=== PATIENT | female | born 1985 | race Caucasian/White ===

== ENCOUNTER 2017-09-18 15:31 | Emergency (ER) | payer MEDICAID ==
[~2017-09-18] VITALS: Ht 167.6 cm; Wt 79.5 kg
[~2017-09-18 15:31] MED LIST: IBUP400T22 PO
[2017-09-18 15:35] VITALS: Ht 167.6 cm; Wt 79.5 kg
[2017-09-18] MEDS ORDERED: KETOROLAC 15 MG INJ IM STA (17:15)
--- NOTE | 2017-09-18 17:15 | ERD ---
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 Denies change in vision, nausea, vomiting, change in behavior, alteration in limb function, reports that she has intermittent tingling on the right arm.. ROS All systems reviewed and are negative except as per history of present illness. Medications Home Meds Active Scripts Ibuprofen* (Ibuprofen*) 400 Mg Tablet, 400 MG PO Q6H Y for PAIN, #30 TAB Prov:VERONICA ANDERSON NP 08/22/15 Allergies Allergies: Coded Allergies: No Known Allergy (Unverified , 09/26/14) PMhx/Soc History of Surgery: No Anesthesia Reaction: No Hx Neurological Disorder: No Hx Cardiac Disorders: No Hx Psychiatric Problems: No Hx Miscellaneous Medical Probl: No Hx Alcohol Use: No Hx Substance Use: No Hx Tobacco Use: No Physical Exam Vitals Vital Signs Date Time Temp Pulse Resp B/P Pulse Ox O2 Delivery O2 Flow Rate FiO2 09/18/17 15:35 98.0 79 20 139/82 99 Vitals stable, triage notes reviewed Physical Exam Const: Well-nourished well hydrated well appearing 32-year-old female no acute distress Head: Atraumatic Eyes: Normal Conjunctiva, PERRLA, EOMI ENT: Neck: No cervical point tenderness, palpable paraspinal tenderness on right, decreased range of motion with rotation, flexion, extension , and lateral bending. Resp: Clear to auscultation bilaterally no respiratory distress Cardio: S1-S2, no S3-S4, regular rate and rhythm, no murmur Abd: Skin: No petechiae or rashes, no ecchymosis abrasion or laceration Back: No midline or flank tenderness Ext: Neuro: M/S: Alert and oriented Face: EOMI, face and pharynx with normal sensation and function Motor: Normal strength throughout Sensation: Normal sensation throughout Speech: Normal Cerebel: Normal coordination Normal gait Normal finger to nose Psych: Normal Mood and Affect Results 24 hrs Current Medications Medications (Trade) Dose Ordered Sig/Faith Route PRN Reason Start Time Stop Time Status Last Admin Dose Admin Ketorolac Tromethamine (Toradol) 15 mg ONCE STAT IM 09/18/17 17:15 09/18/17 17:19 DC 09/18/17 17:52 Procedures/MDM This 32-year-old female presents to emergency department where evaluation of a right-sided headache, neck pain, with intermittent numbness and tingling radiating down right arm. Patient denies any known injury but she is a primary caregiver to an autistic child that can be combative at times. Patient is neurologically stable with no deficit identified, emergency room course includes history and physical exam, Toradol intramuscularly, patient reassessed after 30 minutes with improvement of headache symptoms, patient will be discharged home with Naprosyn 500 mg 1 tab p.o. twice daily 10 days, and Valium 5 mg 1 tab p.o. 3 times daily count of 10. Patient instructed to follow- up with primary care physician for routine health maintenance, in addition to possible referral to physical therapist. Return to emergency department for change in behavior, headache not responding to treatment, or symptoms not improving as inspected. Patient is stable with no new complaints during ER course, clinically there is no current evidence to suggest meningitis, sepsis, acute abdomen, acute coronary syndromes, pulmonary embolism or any other emergent condition appearing to require further evaluation or hospitalization. I feel the patient is stable for discharge at this time. I have discussed results, examination findings, the treatment plan with the patient and family present prior to discharge. Indications for emergent reevaluation, side effects of medication were also discussed. All questions were answered. Patient verbalizes understanding and agrees with plan of care. Departure Diagnosis: Primary Impression: Headache Headache type: tension-type Headache chronicity pattern: episodic headache Intractability: not intractable Qualified Code: G44.219 - Episodic tension- type headache, not intractable Additional Impression: Cervical sprain Encounter type: initial encounter Qualified Code: S13.9XXA - Neck sprain, initial encounter Condition: Good Patient Instructions: Self-Care for Headaches Referrals: [facility] Additional Instructions: Thank you for for coming to the [facility] for your care today. Please ask your nurse or provider if you have questions about your care today and do not leave until all your questions have been answered. Please use any medications given as directed and follow-up with your doctor (or the doctor you were referred to) in the next 2-3 days. If you do not have a primary care doctor you may follow up at the [facility] (listed below). You may also use motrin and tylenol as needed for fever and/or pain unless instructed otherwise by your provider or nurse. Indications for more urgent follow-up have been discussed, but you may return to the Emergency Department at ANY time for any worrisome or worsening symptoms. If you have abdominal pain, please know that no test or exam you received is perfect and you should follow up within 8 hours for continued pain. If you had any imaging studies today, such as an X-Ray or CT Scan, these studies will be reviewed later by a radiologist. You will be called if there are important findings that were not identified today, so make sure the contact information you provided at registration is correct. If you received any narcotic pain control medicine today, such as Vicodin, Morphine or Dilaudid, your coordination and judgment may be affected for a number of hours. Please do not drive or operate heavy machinery, and you may want someone to assist you at home. If you were given a prescription for narcotic medication, be aware that it is very addictive- use sparingly and only if necessary. BETTY SLAUGHTER Sep 18, 2017 17:15
[2017-09-18] MEDS ORDERED: DIAZ-90 PO (19:41)
[2017-09-18] MEDS ORDERED: NAPR-260 PO (19:41)
[2017-09-18 19:46] VITALS: BP 121/78; PULSE 71; RESP 18
== END 2017-09-18 19:47 | disposition home or self-care (01) ==
LOC: FTE 15:31
DX: G44.219 Episodic tension-type headache, not intractable (principal); S13.9XXA Sprain of joints and ligaments of unspecified parts of neck, initial encounter; X58.XXXA Exposure to other specified factors, initial encounter; Y92.9 Unspecified place or not applicable
CPT/HCPCS: 96372; J1885; Z7502

== ENCOUNTER 2018-06-21 12:00 | Emergency (ER) | END 2018-06-21 15:27 | disposition home or self-care (01) ==

== ENCOUNTER 2018-10-15 11:17 | Emergency (ER) | END 2018-10-15 13:49 | disposition home or self-care (01) ==

== ENCOUNTER 2019-02-15 08:51 | Emergency (ER) | payer SELFPAY ==
[~2019-02-15] VITALS: Ht 162.6 cm; Wt 75.0 kg
[~2019-02-15 08:51] MED LIST changes: +CEPH-443 PO; +DIAZ5TAB PO; +IBUP-1541 PO; -IBUP400T22 PO; +NAPR-985 PO
[2019-02-15 08:56] VITALS: Ht 162.6 cm; Wt 75.0 kg
[2019-02-15] MEDS ORDERED: HC30CR25 TOP (10:52)
[2019-02-15] MEDS ORDERED: AMOX500C2 PO (10:52)
[2019-02-15] MEDS ORDERED: ACET500C5 PO (10:52)
--- NOTE | 2019-02-15 10:55 | ERD ---
ER Documentation Chief Complaint Chief Complaint swallowing problem and right arm reashes HPI 34-year-old female presents with approximately 10-day history of sore throat. She denies fevers, cough. She has an additional complaint of a rash on her right upper arm. He had a new tattoo approximately 3 months ago. She denies any redness, discharge. Denies any chest pain, vomiting, abdominal pain. ROS All systems reviewed and are negative except as per history of present illness. Medications Home Meds Active Scripts Hydrocortisone* Topical (Hydrocortisone* Topical) 2.5%-28.3 Gm Cream..g., 1 APPLIC TOP BID for 7 Days, #1 TUB Prov:JUAN DE SANTIAGO MD 02/15/19 Acetaminophen* (Tylophen*) 500 Mg Capsule, 1 CAP PO Q6H PRN for PAIN AND OR ELEVATED TEMP, #15 CAP Prov:JUAN DE SANTIAGO MD 02/15/19 Amoxicillin* (Amoxicillin*) 500 Mg Cap, 500 MG PO TID for 10 Days, CAP Prov:JUAN DE SANTIAGO MD 02/15/19 Naproxen* (Naprosyn*) 500 Mg Tablet, 500 MG PO BID PRN for PAIN AND/OR INFLAMMATION, #30 TAB Prov:RAMESH DAWKINS PA-C 06/21/18 Cephalexin* (Keflex*) 500 Mg Capsule, 500 MG PO QID for 10 Days, CAP Prov:RAMESH DAWKINS PA-C 06/21/18 Diazepam* (Valium*) 5 Mg Tablet, 5 MG PO Q8, #10 TAB Prov:SUKHJINDER,BETTY 09/18/17 Naproxen* (Naprosyn*) 500 Mg Tablet, 500 MG PO BID PRN for PAIN AND/OR INFLAMMATION, #20 TAB Prov:SUKHJINDER,BETTY 09/18/17 Ibuprofen* (Ibuprofen*) 400 Mg Tablet, 400 MG PO Q6H PRN for PAIN, #30 TAB Prov:VERONICA ANDERSON NP 08/22/15 Allergies Allergies: Coded Allergies: No Known Allergy (Unverified , 06/21/18) PMhx/Soc History of Surgery: Yes (CHOLECYSTECTOMY) Anesthesia Reaction: No Hx Neurological Disorder: No Hx Cardiac Disorders: No Hx Psychiatric Problems: No Hx Miscellaneous Medical Probl: No Hx Alcohol Use: Yes (occasional) Hx Substance Use: No Hx Tobacco Use: No FmHx Family History: No diabetes, No coronary disease, No other Physical Exam Vitals Vital Signs Date Temp Pulse Resp B/P (MAP) Pulse Ox O2 O2 Flow FiO2 Time Delivery Rate 02/15/19 98.6 80 19 123/86 98 08:56 (98) Physical Exam Const: No acute distress Head: Atraumatic Eyes: Normal Conjunctiva ENT: Normal External Ears, Nose and Mouth. Tonsils 3+ with erythema. Minimal exudate. Uvula midline. Neck: Full range of motion. No meningismus. Resp: Clear to auscultation bilaterally Cardio: Regular rate and rhythm, no murmurs Abd: Soft, non tender, non distended. Normal bowel sounds Skin: No petechiae or purpura. Scant hyperkeratotic papules on the right upper arm. No erythema, warmth, streaking. Back: No midline or flank tenderness Ext: No cyanosis, or edema Neur: Awake and alert Psych: Normal Mood and Affect Procedures/MDM Patient presents with sore throat for last 10 days. She has signs of pharyngitis we will treat empirically with amoxicillin, and Tylenol. She has no evidence of abscess, airway obstruction. She has a rash on her right upper arm which appears to be hyperkeratotic papules, possibly reaction to tattoo. I am recommending exfoliation and will give a short course of hydrocortisone. No signs of purpura, cellulitis, life-threatening rashes. The patient was stable with no new complaints during the ER course. Clinically, there is no current evidence to suggest meningitis, sepsis, acute abdomen, pneumonia, stroke, acute coronary syndrome, pulmonary embolism, aortic dissection or any other emergent condition appearing to require further evaluation or hospitalization. Patient counseled regarding my diagnostic impression and care plan. Prior to discharge all questions answered. Pt agrees with treatment plan and understands strict return precautions. Pt is instructed to follow up with primary care provider within 24-48 hours. Precautionary instructions provided including instructions to return to the ER if not improving or for any worsening or changing symptoms or concerns. Departure Diagnosis: Primary Impression: Rash Additional Impression: Pharyngitis Pharyngitis/tonsillitis etiology: unspecified etiology Qualified Codes: J02.9 - Acute pharyngitis, unspecified Condition: Stable Patient Instructions: Dermatitis, Non-Specific, Pharyngitis, Strep (Presumed) Additional Instructions: Recommend exfoliation for rash. We will treat for infection in throat given duration of symptoms although may be viral illness. Recheck for any worsening symptoms with primary care doctor. JUAN DE SANTIAGO MD Feb 15, 2019 10:55
[2019-02-15 11:55] VITALS: BP 121/80; PULSE 77; RESP 18
== END 2019-02-15 11:45 | disposition home or self-care (01) ==
LOC: FTE 08:51
DX: R21 Rash and other nonspecific skin eruption (principal); J02.9 Acute pharyngitis, unspecified
CPT/HCPCS: 99283

== ENCOUNTER 2019-02-27 00:31 | Emergency (ER) | payer MEDICAID ==
[~2019-02-27] VITALS: Ht 162.6 cm; Wt 74.3 kg
[~2019-02-27 00:31] MED LIST changes: +ACET500C5 PO; +AMOX500C2 PO; +HC30CR25 TOP
[2019-02-27 00:47] VITALS: Ht 162.6 cm; Wt 74.3 kg
[2019-02-27] MEDS ORDERED: KETOROLAC 60 MG INJ IM STA (03:49)
[2019-02-27] MEDS ORDERED: HYDROCODONE/APAP (5/325) TAB PO ONE (04:00)
[2019-02-27] MEDS ORDERED: ONDANSETRON (ODT) 4 MG TAB ODT STA (05:21)
[2019-02-27] MEDS ORDERED: NAPR-985 PO (05:34)
[2019-02-27] MEDS ORDERED: TRAM50TA2 PO (05:34)
[2019-02-27] MEDS ORDERED: LIDOCAINE/MYLANTA 40 ML BTL PO ONE (06:00)
[2019-02-27] MEDS ORDERED: FAMOTIDINE 20 MG TAB PO ONE (06:00)
[2019-02-27 06:15] VITALS: BP 138/88; PULSE 87; RESP 20
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
== END 2019-02-27 06:23 | disposition home or self-care (01) ==
LOC: FTE 00:31
DX: S60.211A Contusion of right wrist, initial encounter (principal); S50.11XA Contusion of right forearm, initial encounter; Y04.8XXA Assault by other bodily force, initial encounter
CPT/HCPCS: 29125; 73090; 73110; 73130; 81003; 81025; 96372; J1885; Z7502; Z7610